=== PATIENT | male | born 1995 | race Hispanic/Latino ===

== ENCOUNTER 2024-05-06 18:37 | Emergency (ER) | payer BC, OTHER ==
[2024-05-06] MEDS ORDERED: Lidocaine 1% w/Epinephrine 1:100K 20 ML VIAL ONE (19:59)
[2024-05-06] MEDS ORDERED: Clindamycin 150 MG CAP ONE (21:07)
== END 2024-05-06 21:23 | disposition home or self-care (01) ==
LOC: MADERS 18:37
DX: L02.215 Cutaneous abscess of perineum (principal); L03.315 Cellulitis of perineum; F17.290 Nicotine dependence, other tobacco product, uncomplicated
CPT/HCPCS: 55100